=== PATIENT | male | born 1955 | race Caucasian/White ===

== ENCOUNTER 2020-05-13 12:13 | Outpatient (REF) | payer OTHER, SELFPAY ==
--- NOTE | 2020-05-14 11:46 | MHC.AU.P13 ---
Adult Audiological Evaluation Date of Visit: 05/14/20 Reason for Appointment: Audiological evaluation to monitor the status of Mr. Kwok's hearing. He has a long-standing history of binaural mixed hearing loss and hearing aid use. He notes that his hearing seems to be gradually worsening. He denies any changes to his medical history. Previous Hearing Test Results: [facility], Mild to moderate mixed hearing loss sloping to a severe to profound sensorineural hearing loss bilaterally, right ear worse than left ear. History of middle-ear dysfunction. Hearing Instrument History- Right Ear: Paint Grinder: Phonak Model: CBRITEeo B50-R Serial Number: [id number] Battery Size: Rechargeable Repair Warranty: 06/26/2018 Loss and Damage Warranty: 06/26/2018 Dispensed By: [facility] Date of Fittin04/06/2016 Hearing Instrument History- Left Ear: Paint Grinder: Zojiak Model: CBRITEeo B50-R Serial Number: [id number] Battery Size: Rechargeable Warranty: 06/26/2018 Loss and Damage Warranty: 06/26/2018 Dispensed By: [facility] Date of Fittin04/06/2016 Otoscopy: Right Ear: Unremarkable Left Ear: Unremarkable Tympanometry: Right Ear: Non-compliant Middle Ear System (Type B) Left Ear: Non-compliant Middle Ear System (Type B) Hearing Evaluation: Transducer(s) Used: Insert Earphones, Bone Conduction Method: Conventional Audiometry Stimuli Used: Pure Tones Right Ear: Description of Hearing: Mild to moderate conductive hearing loss from 250-1000 Hz, mild sensorineural hearing loss at 2000 Hz, sloping to a moderately severe mixed hearing loss at 3000 Hz, a severe sensorineural hearing loss at 4000 Hz, and a profound hearing loss at 1545-4027 Hz. Left Ear: Description of Hearing: Normal hearing at 250 Hz, sloping to a mild sensorineural hearing loss at 500 Hz, a mild conductive hearing loss at 1000 Hz, moderate sensorineural hearing loss at 2000 Hz, moderately severe mixed hearing loss at 3000 Hz, a moderately severe sensorineural hearing loss at 4000 Hz, and a moderately severe to severe hearing loss from 0354-4291 Hz. Speech Recognition Threshold (SRT): Method Used: Monitored Live Voice Stimuli Used: Spondee Words Right Ear: 30 dBHL Left Ear: 25 dBHL Word Discrimination: Method: Recorded Lists Word Lists Used: NU-6 Right Ear: 76% at 70 dBHL, 100% at 75 dBHL Left Ear: 96% at 70 dBHL Comparison: Compared to the most recent evaluation: Hearing is stable. Recommendations: Recommendations: Audiological re-evaluation in one year. Hearing aid maintenance performed today. See Hearing Aid Follow-Up note for more information. Recommendations (Other): Ordering new left earmold, as current is broken. Replaced left engineering group manager. Diagnosis: Primary Diagnosis: H90.6 Mixed Hearing Loss, Bilateral Services Performed: Services Performed: Comprehensive Audiological Evaluation (CPT 95043) Tympanometry (CPT 74234) Signature: Provider: May Costa, CCC-A
== END 2020-05-13 12:14 | disposition home or self-care (01) ==
LOC: HO.SH 12:13
PROVIDERS: Visit Provider Internal Medicine
DX: H90.6 Mixed conductive and sensorineural hearing loss, bilateral (principal)
CPT/HCPCS: 92557; 92567; 92593; 99499; V5014

== ENCOUNTER 2020-05-29 15:21 | Outpatient (REF) | payer OTHER, SELFPAY | END 2020-05-29 15:22 | disposition home or self-care (01) | LOC: HO.HAP 15:21 | PROVIDERS: Visit Provider Internal Medicine | DX: Z46.1 Encounter for fitting and adjustment of hearing aid (principal); H90.3 Sensorineural hearing loss, bilateral | CPT/HCPCS: V5264 ==

== ENCOUNTER 2020-08-12 12:53 | Outpatient (REF) | payer OTHER, SELFPAY ==
--- NOTE | 2020-08-12 13:17 | MHC.AU.P13 ---
Hearing Instrument Problem Date of Visit: 08/12/20 Right Ear: Infrastructure Security Architect: Phonak Model: Audeo B50-R Serial Number: [id number] Repair Warranty: 06/26/2018 Loss and Damage Warranty: 06/26/2018 Battery Size: Rechargeable Geology Associate: 1xS Type of Mold: Slim Tip with canal lock Type of Wax Guard: cerustop Left Ear: Infrastructure Security Architect: Phonak Model: Audeo B50-R Serial Number: [id number] Repair Warranty: 06/26/2018 Loss and Damage Warranty: 06/26/2018 Battery Size: Rechargeable Geology Associate: 1xS Type of Mold: Slim tip with canal lock Type of Wax Guard: Cerustop Follow-Up Summary: Patient brought in aids stating right fades and left needs cleaning. Wax guard for right was down into slim tip - able to remove clean and replace slim tip; left cleaned and both currently amplifying clearly. Patient will try and let us know if any further issues. Recommendations: Recommendations: Hearing instrument follow-up or maintenance as needed. Signature: Provider: ROSSY Hay-HIS
== END 2020-08-12 12:54 | disposition home or self-care (01) ==
LOC: HO.HAP 12:53
PROVIDERS: Visit Provider Internal Medicine
DX: Z13.89 Encounter for screening for other disorder (principal)

== ENCOUNTER 2020-12-11 14:54 | Outpatient (REF) | payer OTHER, SELFPAY | END 2020-12-11 14:55 | disposition home or self-care (01) | LOC: HO.HAP 14:54 | PROVIDERS: Visit Provider Internal Medicine | DX: Z46.1 Encounter for fitting and adjustment of hearing aid (principal); H90.6 Mixed conductive and sensorineural hearing loss, bilateral | CPT/HCPCS: 92593 ==

== ENCOUNTER 2020-12-20 13:46 | Outpatient (REF) | payer OTHER, SELFPAY | END 2020-12-20 13:47 | disposition home or self-care (01) | LOC: HO.HAP 13:46 | PROVIDERS: Visit Provider Internal Medicine | DX: Z13.89 Encounter for screening for other disorder (principal) | CPT/HCPCS: V5014 ==